=== PATIENT | male | born 2000 | race Caucasian/White ===

== ENCOUNTER 2021-11-16 22:30 | Emergency (ER) | payer MEDICAID, SELFPAY ==
[2021-11-16 22:31] VITALS: BP 180/84; PULSE 142; RESP 18; TEMP 36.7; O2SAT 100; BMI 39.0
--- NOTE | 2021-11-16 22:46 | EKG12_ITS ---
Test Reason : PALPATATIONS Blood Pressure : / mmHG Vent. Rate : 097 BPM Atrial Rate : 097 BPM P-R Int : 138 ms QRS Dur : 096 ms QT Int : 348 ms P-R-T Axes : 060 072 012 degrees QTc Int : 441 ms Normal sinus rhythm Normal ECG Confirmed by ROB ADORNO, MARYELLEN ([id number]), online editor KENN CHANCE ([id number]) on 11/18/2021 10:40:14 AM Referred By: Confirmed By:MARYELLEN RIVAS MD
--- NOTE | 2021-11-16 22:46 | EX.ED.DYSGE1 ---
HPI History of Present Illness Chief Complaint: Palpitations Informant: patient Narrative Narrative: 21-year-old male presenting to the emergency department out of concerns of palpitations. Patient states that tonight he was at home and he tried a new vape pen cannabis cartridge as well as tobacco cartridge. States his heart is beating faster than normal. States he became very concerned about this and wanted to be seen. He admits that he is feeling a bit paranoid at this time. PFSH PFSH Home Medications No Known/Unobtainable [No Known Home Medications] 02/14/14 [History Last Taken Unknown] Allergy/AdvReac Type Severity Reaction Status Date / Time No Known Allergies Allergy Verified 02/14/14 20:02 Social History (Updated 11/16/21 @ 22:[address] Con Ramos, DO) current gender identity: male Smoking Status: Current every day smoker substance use type: marijuana ROS ROS ED Constitutional Constitutional ED: Denies chills or weight loss Eyes Eyes: Denies change in vision or diplopia ENT ENT ED: Denies ear pain, rhinorrhea or sore throat Cardiovascular Cardiovascular: Reports racing heartbeat; Denies chest pain, orthopnea or palpitations Respiratory/Chest Respiratory/Chest: Denies cough, dyspnea or orthopnea Gastrointestinal Gastrointestinal: Denies abdominal pain, diarrhea, nausea or vomiting Genitourinary Genitourinary ED: Denies dysuria, hematuria or urinary frequency Musculoskeletal Musculoskeletal: Denies arthralgias or myalgias Integumentary Denies abscess or rash Neurologic Neurologic: Denies headache(s) or weakness Psychiatric Psychiatric: Denies anxiety, depression, suicidal ideation or suicidal thoughts Endocrine Endocrinology: Denies polydipsia, polyphagia or polyuria Allergic/Immunologic Allergic/Immunologic ED: Denies mouth swelling, tongue swelling or urticaria EXAM Physical Exam Const Vital Signs: 11/16/21 22:31 Temperature 98.1 F Temperature Source Temporal Pulse Rate 142 H Respiratory Rate 18 Blood Pressure 180/84 H Blood Pressure Mean 116 Pulse Ox 100 Oxygen Delivery Method Room Air Positive well nourished and well developed General Appearance ED: well developed HEENT Reports normocephalic, head/scalp atraumatic and moist mucous membranes Eyes PERRL and EOMs intact bilaterally Neck no lymphadenopathy, supple and no JVD Resp normal respiratory effort and clear to auscultation bilaterally Cardio regular rhythm and no murmurs Rate: tachycardic GI normal to inspection, nondistended, normoactive bowel sounds and non-tender Palpation: soft Back/Spine no CVA tenderness and normal ROM Extremity normal to inspection General Extremety ED: Negative for edema General Extremity: Negative for edema Neuro oriented x3 and CN's II-XII intact bilaterally Sensorium / Orientation: alert Motor Exam: strength 5/5 throughout Psych mental status grossly normal Mood & Affect: anxious; Negative for depressed or tearful Skin no rashes or lesions noted and no wounds MDM MDM MDM Narrative Medical decision making narrative: My interpretation of the chest x-ray is no acute process. Normal mediastinal silhouette. Patient has remained in a sinus tachycardia on the monitor at around 100 bpm. He was observed. At this point patient will be discharged home instructions to avoid any further ingestion tonight. EKG Initial EKG: Attestation: I personally reviewed and interpreted this EKG as follows: Comments: Normal sinus rhythm with a ventricular rate of 97 bpm Discharge Plan Triage Chief Complaint: Palpitations ED Provider: Con Ramos Dx/Rx/DC Orders Clinical Impression: Sinus tachycardia, Anxiety about health Instructions: ED Palpitations Prescriptions: No Action No Known Home Medications Primary Care Provider: Cheryl Carranza Referrals: Cheryl Carranza MD [Primary Care Provider] - As Needed Disposition Disposition: Home, Self Care
--- NOTE | 2021-11-16 23:00 | RAD_ITS ---
STUDY: X-RAY CHEST REASON FOR EXAM: Male, 21 years old. palpitations TECHNIQUE: AP COMPARISON: None. FINDINGS: The lungs are clear and expanded. There is no demonstrated pleural abnormality. Normal size heart. Normal mediastinum and shashank. Normal visualized pulmonary arteries. Normal visualized aortic arch and descending thoracic aorta. Normal visualized thoracic spine. Normal visualized ribs, clavicles, and shoulders. There is no demonstrated abnormality of the visualized soft tissue structures of the upper abdomen. RAD/Chest 1 View (Portable) IMPRESSION: Nonacute portable x-ray examination of the chest. Electronically Signed: Jarett Sosa MD ([place]) at 23:30 EDT Reading Location ID and State: [facility] / [place] , Service support ,
== END 2021-11-16 23:17 | disposition home or self-care (01) ==
LOC: ED 23:17
PROVIDERS: Emergency Provider Emergency Medicine; Visit Provider Emergency Medicine
DX: R00.0 Tachycardia, unspecified (principal); R00.2 Palpitations; F41.9 Anxiety disorder, unspecified; F17.200 Nicotine dependence, unspecified, uncomplicated
CPT/HCPCS: 71045; 93005; 99283

== ENCOUNTER 2022-10-17 20:30 | Emergency (ER) | payer MEDICAID, SELFPAY ==
[2022-10-17 20:31] VITALS: BP 168/83; PULSE 71; RESP 16; TEMP 36.2; O2SAT 100
[2022-10-17 21:28] VITALS: BMI 42.0
--- NOTE | 2022-10-17 21:38 | ED.VIS.DENTA ---
HPI History of Present Illness Chief Complaint: Dental Informant: patient Onset/Context/Timing Onset: Days Narrative Narrative: Patient presents secondary to right upper dental pain. He states his tooth been bothering him for several days. He was seen at urgent care 2 days ago and prescribed Pen-Vee K. He has an appointment to see a dentist in [place] on Thursday. He states has been taking Excedrin along with Tylenol and ibuprofen at home and he was concerned about taking too many [id number] pain medicines. PFSH PFSH Medical History Anxiety Marijuana abuse Smoker Home Medications naproxen 500 mg tablet (Naprosyn) 500 mg PO BID PRN pain #20 tabs 10/17/22 [Rx Last Taken Unknown] penicillin V potassium 500 mg tablet 500 mg PO 4X/DAY 10/17/22 [History Last Taken Unknown] tramadol 100 mg tablet 100 mg PO BID PRN pain #10 tabs 10/17/22 [Rx Last Taken Unknown] Allergy/AdvReac Type Severity Reaction Status Date / Time No Known Allergies Allergy Verified 10/17/22 20:30 Social History Smoking Status: Current every day smoker tobacco type: cigarettes substance use type: marijuana ROS ROS ED Constitutional Constitutional ED: Denies chills or fever(s) ENT ENT ED: Denies ear pain or sore throat Cardiovascular Cardiovascular: Denies chest pain or palpitations Respiratory/Chest Respiratory/Chest: Denies cough or dyspnea Gastrointestinal Gastrointestinal: Denies abdominal pain, diarrhea or vomiting Genitourinary Genitourinary ED: Denies dysuria Integumentary Denies Abrasions Neurologic Neurologic: Denies headache(s) or weakness Psychiatric Psychiatric: Denies anxiety or depression Allergic/Immunologic Allergic/Immunologic ED: Denies mouth swelling or tongue swelling EXAM Physical Exam Const Vital Signs: 10/17/22 20:31 Temperature 97.2 F L Temperature Source Temporal Pulse Rate 71 Respiratory Rate 16 Blood Pressure 168/83 H Blood Pressure Mean 111 Pulse Ox 100 Oxygen Delivery Method Room Air Positive well nourished and well developed General Appearance ED: well developed HEENT HEENT Narrative: Right maxillary second premolar is tender to palpation. No obvious dental fracture or caries. Mild gum edema. Posterior pharynx is unremarkable. No trismus. No submandibular fullness or evidence of Brady's angina. Eyes PERRL and EOMs intact bilaterally Neck no lymphadenopathy Chest Wall inspection of chest normal and palpation of chest normal Resp normal respiratory effort and clear to auscultation bilaterally Cardio regular rate and regular rhythm GI normal to inspection, nondistended, normoactive bowel sounds Extremity normal to inspection Neuro oriented x3 Sensorium / Orientation: alert MDM MDM MDM Narrative Medical decision making narrative: Patient has no evidence of facial edema or erythema. He will continue his penicillin. I will write him for naproxen as well as a few tramadol for breakthrough pain. He was advised to take this and not add [id number] medication to this. He will follow-up with his dentist on Thursday as scheduled. Discharge Plan Triage Chief Complaint: Dental ED Provider: Nikki Bhatia Dx/Rx/DC Orders Clinical Impression: Odontalgia Instructions: ED Dental Pain Prescriptions: New naproxen [Naprosyn] 500 mg tablet 500 mg PO BID PRN (Reason: pain) Qty: 20 0RF tramadol 100 mg tablet 100 mg PO BID PRN (Reason: pain) Qty: 10 0RF No Action penicillin V potassium 500 mg tablet 500 mg PO 4X/DAY Primary Care Provider: Care Physician,No Primary Referrals: Care Physician,No Primary [Primary Care Provider] - Activity Restrictions/Additional Instructions: Follow-up with your dentist on Thursday as scheduled. Disposition Disposition: Home, Self Care Discharge Date/Time: 10/17/22 21:53
[2022-10-17] MEDS: Naproxen 500 MG Tablet PO (21:43)
== END 2022-10-17 21:53 | disposition home or self-care (01) ==
LOC: ED 21:51
PROVIDERS: Emergency Provider Emergency Medicine; Visit Provider Emergency Medicine
DX: K08.89 Other specified disorders of teeth and supporting structures (principal); F17.210 Nicotine dependence, cigarettes, uncomplicated
CPT/HCPCS: 99282

== ENCOUNTER 2023-01-27 00:32 | Emergency (ER) | payer MEDICAID, SELFPAY ==
[2023-01-27 00:33] VITALS: BP 162/96; PULSE 99; RESP 16; TEMP 36.6; O2SAT 100; BMI 39.6
--- NOTE | 2023-01-27 00:57 | RAD_ITS ---
INDICATION: injury EXAMINATION/TECHNIQUE: X-RAY - RIGHT XR Shoulder Min 2 Views 4 VIEWS COMPARISON: No relevant prior comparison study available FINDINGS: SOFT TISSUES: No soft tissue swelling or gas. No radiopaque foreign body. BONES/JOINTS: No acute fracture or subluxation.. Normal alignment. Preservation of the joint space.. No sclerotic or destructive changes observed. RAD/Shoulder min 2 Views IMPRESSION: Negative. Electronically Signed: Madeline Ureña MD at 1:58 EDT ,
--- NOTE | 2023-01-27 00:57 | EX.ED.UPPERE ---
HPI History of Present Illness Chief Complaint: Upper Extremity Injury Informant: patient Narrative Narrative: Patient presents for repeat evaluation of a right shoulder injury. About 2 weeks ago he was running away from a friend and put his arm out to bounce off the wall and hit too hard. He jammed his right shoulder. He was seen at a local urgent care. He states he was told that the x-rays showed a possible hairline fracture and he was not better in 2 weeks he should get it rechecked. He is right-hand dominant. Has been taking ibuprofen intermittently. PFSH PFSH Medical History Anxiety Marijuana abuse Smoker Home Medications naproxen 500 mg tablet (Naprosyn) 500 mg PO BID PRN pain #20 tabs 10/17/22 [Rx Last Taken Unknown] penicillin V potassium 500 mg tablet 500 mg PO 4X/DAY 10/17/22 [History Last Taken Unknown] tramadol 100 mg tablet 100 mg PO BID PRN pain #10 tabs 10/17/22 [Rx Last Taken Unknown] naproxen 500 mg tablet (Naprosyn) 500 mg PO BID PRN pain #20 tabs 01/27/23 [Rx Last Taken Unknown] Allergy/AdvReac Type Severity Reaction Status Date / Time No Known Allergies Allergy Verified 01/27/23 00:36 Social History Smoking Status: Current every day smoker tobacco type: cigarettes substance use type: marijuana ROS ROS ED Constitutional Constitutional ED: Denies chills or fever(s) ENT ENT ED: Denies rhinorrhea or sore throat Cardiovascular Cardiovascular: Denies chest pain Respiratory/Chest Respiratory/Chest: Denies cough or dyspnea Gastrointestinal Gastrointestinal: Denies abdominal pain, nausea or vomiting Musculoskeletal Musculoskeletal: Reports extremity pain; Denies back pain Integumentary Denies Abrasions or rash Neurologic Neurologic: Denies headache(s), paresthesias or weakness Psychiatric Psychiatric: Denies anxiety or depression Allergic/Immunologic Allergic/Immunologic ED: Denies lip swelling or urticaria EXAM Physical Exam Const Vital Signs: 01/27/23 00:33 Temperature 97.8 F Temperature Source Temporal Pulse Rate 99 Respiratory Rate 16 Blood Pressure 162/96 H Blood Pressure Mean 118 Pulse Ox 100 Oxygen Delivery Method Room Air Positive well nourished and well developed General Appearance ED: well developed HEENT Reports moist mucous membranes Chest Wall inspection of chest normal and palpation of chest normal Resp normal respiratory effort and clear to auscultation bilaterally Cardio regular rate and regular rhythm GI non-tender Extremity Extremity Narrative: Mild tender palpation over the supraspinatus muscle of the right shoulder. Patient is able to raise his arm above his head, but does do so cautiously above 90 degrees. No pain at the elbow or wrist. Strong distal pulses and normal cap refill. Good sensation throughout. Neuro oriented x3 Psych mental status grossly normal MDM MDM MDM Narrative Medical decision making narrative: Patient given Naprosyn and right shoulder x-rays obtained to evaluate for fracture. Treatment and Re-Evaluation Narrative: Right shoulder x-ray per my interpretation reveals no evidence of fracture or dislocation. Test results discussed with the patient. I will write him a prescription for naproxen. If not improving within the next 5 days he is to call orthopedics for follow-up. Return instructions given. Discharge Plan Triage Chief Complaint: Upper Extremity Injury ED Provider: Nikki Bhatia Dx/Rx/DC Orders Clinical Impression: Sprain of right shoulder Instructions: ED Shoulder Sprain Prescriptions: New naproxen [Naprosyn] 500 mg tablet 500 mg PO BID PRN (Reason: pain) Qty: 20 0RF No Action penicillin V potassium 500 mg tablet 500 mg PO 4X/DAY naproxen [Naprosyn] 500 mg tablet 500 mg PO BID PRN (Reason: pain) Qty: 20 0RF tramadol 100 mg tablet 100 mg PO BID PRN (Reason: pain) Qty: 10 0RF Primary Care Provider: Neil Comer Referrals: Bar Tay DO [Med Staff - Active Staff] - 10-14 Days if not better Care Physician,No Primary [Non-Staff] - Disposition Disposition: Home, Self Care Discharge Date/Time: 01/27/23 02:08
[2023-01-27] MEDS: Naproxen 500 MG Tablet PO (01:19)
== END 2023-01-27 02:08 | disposition home or self-care (01) ==
PROVIDERS: Emergency Provider Emergency Medicine; PCP Family Medicine; Visit Provider Emergency Medicine
DX: S43.401A Unspecified sprain of right shoulder joint, initial encounter (principal); F17.210 Nicotine dependence, cigarettes, uncomplicated; F12.90 Cannabis use, unspecified, uncomplicated; X58.XXXA Exposure to other specified factors, initial encounter
CPT/HCPCS: 73030; 99283

== ENCOUNTER → 2024-06-16 | Outpatient (CLI) | payer OTHER, SELFPAY ==
[2024-06-16 15:37] LABS: Absolute Lymphocyte Count 2.15 X10^3/uL (0.83-4.51); Absolute Neutrophil Count 7.3 X10^3/uL (2.0-7.7); Basophil% 0.9 % (0-1); Eosinophil# 0.41 X10^3/uL; Eosinophils% 3.8 % (0-5); Hematocrit 46.3 % (40-54); Hemoglobin 15.5 g/dL (13.0-16.5); Lymphocyte # 2.15 X10^3/ul (0.83-4.51); Lymphocyte % 20.1 % (19-41); Mean Corp Hgb Conc 33.5 g/dL (32-36); Mean Corpuscular Hgb 28.8 pg (27.0-32.0); Mean Corpuscular Volume 85.9 fL (80-94); Mean Platelet Vol. 10.8 fl (6.2-12.0); Monocyte# 0.68 X10^3/uL; Monocyte% 6.4 % (0-10); NRBC Flagged by Analyzer 0 % (0-5); Neutrophil % 68.3 % (47-70); Platelet Count 286 K/mm3 (150-450); RBC Distribution Width CV 12.9 % (11.6-14.6); RBC Distribution Width SD 39.8 fl (35.1-43.9); Red Blood Count 5.39 M/mm3 (4.6-6.2); White Blood Count 10.7 K/mm3 (4.4-11.0)
[2024-06-16 16:03] LABS: AST(SGOT) 23 U/L (15-37); Alanine Aminotransfer ALT/SGPT 40 U/L (16-61); Albumin, Serum 3.9 g/dL (3.2-5.0); Alkaline Phosphatase 71 U/L (45-117); Anion Gap 5 (5-15); BUN 12 mg/dL (7-18); BUN/Creat Ratio 11.4 RATIO (10-20); Calcium,Total 9.4 mg/dL (8.5-10.1); Chloride 103 mmol/L (98-107); Cholesterol 164 mg/dL (200); Creatinine, Serum 1.05 mg/dL (0.70-1.30); EST Glomerular Filtration Rate 93 mL/min (>60); Est Glom Filt Rate - Afr Amer 113 mL/min (>60); Glucose 94 mg/dL (74-106); High Density Lipoprotein 40 mg/dL; Potassium 4.8 mmol/L (3.5-5.1); Protein, Total 7.9 g/dL (6.4-8.2); Sodium Level 136 mmol/L (136-145); Thyroid Stim Hormone (TSH) 0.936 uIU/mL (0.358-3.740); Triglycerides 230 mg/dL; Very Low Density Lipoprotein 46 mg/dL (5-40)
== END | disposition home or self-care (01) ==
PROVIDERS: PCP Family Medicine; Referring Provider Family Medicine; Visit Provider Family Medicine
DX: Z13.1 Encounter for screening for diabetes mellitus (principal); Z13.220 Encounter for screening for lipoid disorders; R53.83 Other fatigue